=== PATIENT | male | born 1980 | race Caucasian/White ===

== ENCOUNTER 2018-12-12 21:40 | Emergency (ER) | payer SELFPAY ==
[~2018-12-12] VITALS: Ht 180.3 cm; Wt 64.0 kg
[2018-12-12] MEDS ORDERED: NORCO 5-325 TA1 EACH PO (23:46)
[2018-12-12] MEDS ORDERED: CRUTCH1 EACH (23:47)
[2018-12-14] MEDS ORDERED: IBUPROFEN200 MG PO (17:10)
== END 2018-12-13 00:09 | disposition home or self-care (01) ==
LOC: ED 21:40
DX: S82.832A Other fracture of upper and lower end of left fibula, initial encounter for closed fracture (principal); X50.9XXA Other and unspecified overexertion or strenuous movements or postures, initial encounter; F17.200 Nicotine dependence, unspecified, uncomplicated
CPT/HCPCS: 73610; 99283

== ENCOUNTER 2018-12-16 08:05 | Day surgery (SDC) | payer BC ==
[~2018-12-16] VITALS: Ht 180.3 cm; Wt 64.0 kg
--- NOTE | ~2018-12-16 | OR ---
[facility] [address] [facility], [place] [address] Draft DATE OF OPERATION: 12/16/2018 SURGEON: Yony Hansen MD PREOPERATIVE DIAGNOSIS: Displaced left lateral malleolus fracture. POSTOPERATIVE DIAGNOSIS: Displaced left lateral malleolus fracture. PROCEDURE PERFORMED: Open reduction and internal fixation, left ankle. ACCESS SPECIALIST: JS Mcgee ANESTHESIA: General. BLOOD LOSS: Minimal. IMPLANTS: Arthrex FibuLock 3 x 130 with two screws. BRIEF HISTORY: Kulwinder is a 38-year-old gentleman, who was wrestling and injured his ankle. He had a displaced fibular fracture and smoking history. He also wished to return to work as soon as possible. Risks, benefits, and alternatives of surgery were discussed with him. He elected to proceed. DESCRIPTION OF PROCEDURE: Once consent was obtained, he was taken to the operating room. After adequate anesthesia, he was placed on operating table, all downside pressure points were well padded. The left leg was prepped and draped in a standard sterile fashion. The fibula was then marked out using image intensifier and a clamp was placed across the fracture percutaneously to hold it in position. The distal portion of the fibula was then approached through 1 cm incision. The guide pin for the FibuLock was then advanced from the tip of the fibula into the body of the fibula. This was then over-reamed using the large drill followed by the small drill. A 3 x 130 FibuLock was then selected and PATIENT NAME: KULWINDER WELLS OPERATIVE REPORT DATE OF : 82 REPORT #: [id number] PHYSICIAN: YONY HANSEN MD PCP: NO PRIMARY CARE PHYSICIAN REPORT IS CONFIDENTIAL AND NOT TO BE RELEASED WITHOUT AUTHORIZATION [facility] [address] [place] [id number] Draft advanced from the tip of the fibula across the fracture site engaging the body of the fibula proximally. It was impacted until it was well seated. The proximal pins were then deployed. Once this was accomplished, the two screws were placed percutaneously at first from direct lateral and the second from the anterior lateral position. Moderate bone was found, although it was a little bit soft. The insertion guide was then removed as was the percutaneous clamp and end cap was placed. The wounds were copiously irrigated with antibiotic solution, closed with israel, and dressed with Acticoat Flex and ABD and Juancho wrap. He was placed back in his fracture boot and taken to the recovery room in satisfactory condition. All sponge, needle, and instrument counts were correct. Yony Hansen MD BA/GABRIELA /[id number] Copies: ~ PATIENT NAME: KULWINDER WELLS OPERATIVE REPORT DATE OF : 82 REPORT #: [id number] PHYSICIAN: YONY HANSEN MD PCP: NO PRIMARY CARE PHYSICIAN REPORT IS CONFIDENTIAL AND NOT TO BE RELEASED WITHOUT AUTHORIZATION
[~2018-12-16 08:05] MED LIST: CRUTCH1 EACH; IBUPROFEN200 MG PO; NORCO 5-325 TA1 EACH PO
--- NOTE | 2018-12-16 10:45 | NUR ---
12/16/18 [facility] TO PACU ON 10 L VIA MASK. ORAL AIRWAY INPLACE. PT UNRESPONSIVE TO VERBAL STIMULUS AT THIS TIME. VSS. PT HAD SCIATIC BLACK AND GENERAL ANESTHESIA. REPORT RECEIVED FROM JUNE NAVARRO. [facility]A [employer] INTACT. DRESSING C/D/I. BOOT INPLACE. ICE AND ELEVATION THERAPY INITIATED.
[2018-12-16] MEDS ORDERED: HYDROCODON-ACE1 EA11 PO (10:46)
[2018-12-16] MEDS ORDERED: CELECOXIB200 MG PO (10:46)
--- NOTE | 2018-12-16 15:45 | NUR ---
1230 PT AMB WITH CRUTCHES VERY WELL, NON WT BEARING L FOOT. READY TO GO HOME. HAS EATEN CRACKERS AND JELLO DRANK 2 CUPS COFFEE. DENIES ANY PAIN. BLOCK EFFECTIVE, L FOOT NUMB. BOOT HAS BEEN ON L FOOT.
== END 2018-12-16 12:30 | disposition home or self-care (01) ==
LOC: OPS 08:05 → DS 08:05 → OPS 09:00 → DS 16:50
PROVIDERS: Specialist
PROC: 0QSK04Z Reposition Left Fibula with Internal Fixation Device, Open Approach (ICD-10-PCS; principal; 2018-12-16 09:00)
DX: S82.62XA Displaced fracture of lateral malleolus of left fibula, initial encounter for closed fracture (principal); F17.210 Nicotine dependence, cigarettes, uncomplicated; F12.90 Cannabis use, unspecified, uncomplicated; X58.XXXA Exposure to other specified factors, initial encounter
CPT/HCPCS: 01480; 64445; 73600; C1713; J0690; J1100; J1885; J2250; J2704; J2795; J3010; J7120

== ENCOUNTER 2019-11-10 07:12 | Emergency (ER) | payer OTHER, BC ==
[~2019-11-10] VITALS: Ht 180.3 cm; Wt 68.0 kg
[~2019-11-10 07:12] MED LIST changes: +CELECOXIB200 MG PO; +HYDROCODON-ACE1 EA11 PO
[2019-11-10] MEDS ORDERED: KEFLEX500 MG PO (08:10)
== END 2019-11-10 08:22 | disposition home or self-care (01) ==
LOC: ED 07:12
DX: S61.431A Puncture wound without foreign body of right hand, initial encounter (principal); F17.200 Nicotine dependence, unspecified, uncomplicated; W29.8XXA Contact with other powered hand tools and household machinery, initial encounter; Y99.0 Civilian activity done for income or pay
CPT/HCPCS: 99283; A9270

== ENCOUNTER 2020-08-08 15:29 | Emergency (ER) | payer BC ==
[~2020-08-08] VITALS: Ht 180.3 cm; Wt 69.4 kg
[~2020-08-08 15:29] MED LIST changes: +EXCEDRIN MIGRA1 EAC2 PO; +KEFLEX500 MG PO
--- OUTSIDE RECORDS SUMMARY | 2020-08-08 15:36 | XMS ---
PreManage Notification: AMY WELLS Security Art Psychotherapist Events No recent Security Events currently on file CRITERIA MET - [facility] - 2 Visits in 30 Days CARE PROVIDERS There are no care providers on record at this time. Paul has no Care Guidelines for this patient. Irina VISIT COUNT (12 MO.) 3 [facility] TOTAL 3 NOTE: Visits indicate total known visits. ED/C VISIT TRACKING (12 MO.) [facility]2020 [facility] COMPLAINT: - ABDOMINAL PAIN 07/12/2020 15:24 [facility] [place] TYPE: Emergency COMPLAINT: - MIGRAINE 11/10/2019 07:13 [facility] [place] TYPE: Emergency COMPLAINT: - RIGHT HAND INJ DIAGNOSES: - Civilian activity done for income or pay - Contact with other powered hand tools and household machinery, initial encounter - Pain in right hand - Puncture wound without foreign body of right hand, initial encounter - Nicotine dependence, unspecified, uncomplicated INPATIENT VISIT TRACKING (12 MO.) No inpatient visits to display in this time frame [id number]
== END 2020-08-08 18:29 | disposition home or self-care (01) ==
LOC: ED 15:29
DX: R10.9 Unspecified abdominal pain (principal); R11.2 Nausea with vomiting, unspecified; F17.200 Nicotine dependence, unspecified, uncomplicated
CPT/HCPCS: 99283

== ENCOUNTER 2020-08-30 18:01 | Emergency (ER) | payer OTHER, BC ==
[~2020-08-30] VITALS: Ht 180.3 cm; Wt 69.4 kg
--- OUTSIDE RECORDS SUMMARY | 2020-08-30 18:04 | XMS ---
PreManage Notification: AMY WELLS Security Scrap Hooker Events No recent Security Events currently on file CRITERIA MET - Group Notification - [facility] - 2 Visits in 30 Days CARE PROVIDERS There are no care providers on record at this time. Paul has no Care Guidelines for this patient. Irina [facility] (12 MO.) [facility] NOTE: Visits indicate total known visits. ED/C VISIT TRACKING (12 MO.) 08/30/2020 18:[address] [facility] [address] [facility] [place] TYPE: Emergency COMPLAINT: - LT ARM INJURY 08/08/2020 15:30 [facility] [place] TYPE: Emergency COMPLAINT: - ABDOMINAL PAIN DIAGNOSES: - Unspecified abdominal pain - Nausea with vomiting, unspecified - Nausea with vomiting, unspecified - Nicotine dependence, unspecified, uncomplicated - Unspecified abdominal pain 07/12/2020 15:24 [facility] [place] TYPE: Emergency [...] visits to display in this time frame [id number]
== END 2020-08-30 18:42 | disposition home or self-care (01) ==
LOC: ED 18:01
DX: S50.352A Superficial foreign body of left elbow, initial encounter (principal); W45.8XXA Other foreign body or object entering through skin, initial encounter; F17.200 Nicotine dependence, unspecified, uncomplicated
CPT/HCPCS: 10120; 99283-25

== ENCOUNTER 2021-04-06 15:02 | Emergency (ER) | payer BC ==
[~2021-04-06] VITALS: Ht 180.3 cm; Wt 68.0 kg
--- OUTSIDE RECORDS SUMMARY | 2021-04-06 15:10 | XMS ---
PreManage Notification: AMY WELLS Security Seismograph Helper Events No recent Security Events currently on file CRITERIA MET - Group Notification CARE PROVIDERS There are no care providers on record at this time. Paul has no Care Guidelines for this patient. Irina VISIT COUNT (12 MO.) 4 D[facility] Dong TOTAL 4 NOTE: Visits indicate total known visits. ED/C VISIT TRACKING (12 MO.) 04/06/2021 15:03 [facility] [place] TYPE: Emergency COMPLAINT: - R ANKLE PAIN 08/30/2020 18:02 [facility] [place] TYPE: Emergency COMPLAINT: - LT ARM INJURY DIAGNOSES: - Nicotine dependence, unspecified, uncomplicated - Superficial foreign body of left elbow, initial encounter - Other foreign body or object entering through skin, initial encounter 08/08/2020 15:30 [facility] [place] TYPE: Emergency COMPLAINT: - ABDOMINAL PAIN DIAGNOSES: - Unspecified abdominal pain - Nausea with vomiting, unspecified - Nausea with vomiting, unspecified - Nicotine dependence, unspecified, uncomplicated - Unspecified abdominal pain 07/12/2020 15:24 [facility] [place] TYPE: Emergency COMPLAINT: - MIGRAINE INPATIENT VISIT TRACKING (12 MO.) No inpatient visits to display in this time frame [email or web address]
== END 2021-04-06 16:23 | disposition home or self-care (01) ==
LOC: ED 15:02
DX: S93.401A Sprain of unspecified ligament of right ankle, initial encounter (principal); F17.200 Nicotine dependence, unspecified, uncomplicated; X58.XXXA Exposure to other specified factors, initial encounter
CPT/HCPCS: 73610; 99283-25

== ENCOUNTER 2021-12-31 10:43 | Emergency (ER) | payer OTHER ==
[~2021-12-31] VITALS: Ht 180.3 cm; Wt 68.0 kg
--- OUTSIDE RECORDS SUMMARY | 2021-12-31 10:50 | XMS ---
PreManage Notification: AMY WELLS Security Electrical And Instrumentation Manager Events No recent Security Events currently on file CRITERIA MET - Group Notification CARE PROVIDERS There are no care providers on record at this time. Paul has no Care Guidelines for this patient. Care History Medical/Surgical 04/16/2021 [facility] NO PCP LETTER SENT WITH CLINIC LIST. E.[facility]ay [facility]12 MO[facility] NOTE: Visits indicate total known visits. ED/UCC VISIT TRACKING (12 MO.) 12/31/2021 10:44 [facility] Jessica [place] TYPE: Emergency COMPLAINT: - FLUID IN LT ELBOW 08/21/2021 12:35 [facility] [place] TYPE: Emergency COMPLAINT: - BACK PAIN 04/06/2021 15:03 [facility] [place] TYPE: Emergency COMPLAINT: - R ANKLE PAIN DIAGNOSES: - Nicotine dependence, unspecified, uncomplicated - Sprain of unspecified ligament of right ankle, initial encounter - Pain in right ankle and joints of right foot - Exposure to other specified factors, initial encounter INPATIENT VISIT TRACKING (12 MO.) No inpatient visits to display in this time frame [id number]
[2021-12-31] MEDS ORDERED: IBU600 MG PO (13:59)
== END 2021-12-31 14:05 | disposition home or self-care (01) ==
LOC: ED 10:43
DX: F17.200 Nicotine dependence, unspecified, uncomplicated (principal); M70.22 Olecranon bursitis, left elbow
CPT/HCPCS: 73080; 99283-25

== ENCOUNTER 2023-02-24 09:51 | Emergency (ER) | payer OTHER ==
[~2023-02-24] VITALS: Ht 180.3 cm; Wt 68.4 kg
[~2023-02-24 09:51] MED LIST changes: +IBU600 MG PO
--- OUTSIDE RECORDS SUMMARY | 2023-02-24 09:54 | XMS ---
PreManage Notification: AMY WELLS Security Senior Quality Control Technician Events No recent Security Events currently on file CRITERIA MET - Group Notification CARE PROVIDERS -Jessica- Dentist: Paper Folder [facility] PHONE: [phone] Paul has no Care Guidelines for this patient. Care History Medical/Surgical 04/16/2021 [facility] NO PCP LETTER SENT WITH CLINIC LIST. Irina VISIT COUNT (12 MO.) 1 [facility]. TOTAL 1 NOTE: Visits indicate total known visits. ED/UCC VISIT TRACKING (12 MO.) 02/24/2023 09:52 [facility] Jensen [place] TYPE: Emergency COMPLAINT: - R HAND PAIN INPATIENT VISIT TRACKING (12 MO.) No inpatient visits to display in this time frame [email or web address]
[2023-02-24 10:55] VITALS: BP 153/96
== END 2023-02-24 10:55 | disposition home or self-care (01) ==
LOC: ED 09:51
DX: S63.501A Unspecified sprain of right wrist, initial encounter (principal); F17.200 Nicotine dependence, unspecified, uncomplicated; X50.0XXA Overexertion from strenuous movement or load, initial encounter
CPT/HCPCS: 73110; 99283-25

== ENCOUNTER 2023-05-13 08:28 | Emergency (ER) | payer OTHER ==
[~2023-05-13] VITALS: Ht 180.3 cm; Wt 63.2 kg
--- OUTSIDE RECORDS SUMMARY | 2023-05-13 08:33 | XMS ---
PreManage Notification: AMY WELLS Security Financial Services Specialist Events No recent Security Events currently on file CRITERIA MET - Group Notification - [facility] - 2 Visits in 30 Days CARE PROVIDERS -Jessica- Dentist: Signals Intelligence Analysis Manager [facility] PHONE: [phone] LUIS ENRIQUE WATKINS Physician Medical I D Sales Current PHONE: Unknown Paul has no Care Guidelines for this patient. Care History Medical/Surgical 04/16/2021 [facility] NO PCP LETTER SENT WITH CLINIC LIST. E.DRay VISIT COUNT (12 MO.) 3 [facility] TOTAL 3 NOTE: Visits indicate total known visits. ED/UCC VISIT TRACKING (12 MO.) 05/13/2023 08:29 [facility] [place] TYPE: Emergency COMPLAINT: - L ANKLE ISSUE 05/12/2023 15:29 [facility] [place] TYPE: Emergency COMPLAINT: - LEFT ANKLE INJURY 02/24/2023 09:52 [facility] [place] TYPE: Emergency COMPLAINT: - R HAND PAIN DIAGNOSES: - Nicotine dependence, unspecified, uncomplicated - Overexertion from strenuous movement or load, initial encounter - Pain in right wrist - Unspecified sprain of right wrist, initial encounter INPATIENT VISIT TRACKING (12 MO.) No inpatient visits to display in this time frame [id number]
[2023-05-13 10:38] VITALS: BP 109/80
== END 2023-05-13 10:39 | disposition home or self-care (01) ==
LOC: ED 08:28
DX: M25.572 Pain in left ankle and joints of left foot (principal); F17.200 Nicotine dependence, unspecified, uncomplicated
CPT/HCPCS: 73610; 99283-25